=== PATIENT | male | born 1940 | race Caucasian/White ===

== ENCOUNTER → 2018-06-11 11:03 | Outpatient (CLI) | payer MEDICARE, SELFPAY ==
--- NOTE | 2018-06-11 | DI.RAD.S_ITS ---
PROCEDURE: XR HIP W PEL IF DONE LT 2V INDICATIONS: LEFT HIP PAIN TECHNIQUE: AP pelvis with lateral view(s) of the left hip(s). COMPARISON: None. FINDINGS: Bones: No fractures or dislocations. Pelvic ring appears intact. No suspicious bony lesions. Soft tissues: The visualized bowel gas pattern is normal. No suspicious soft tissue calcifications. IMPRESSION: No acute radiographic findings. If pain persists, consider advanced imaging with CT or MRI. Dictated by: Fatmata Marcelino M.D. on 06/11/2018 at 12:12 Approved by: Fatmata Marcelino M.D. on 06/11/2018 at 12:12
== END ==
PROVIDERS: PCP Physician Assistant; Visit Provider Student in an Organized Health Care Education/Training Program
DX: M25.552 Pain in left hip (principal)
CPT/HCPCS: 73502

== ENCOUNTER → 2018-06-23 08:03 | Outpatient (CLI) | payer MEDICARE, SELFPAY ==
--- NOTE | 2018-06-23 | DI.ECHO.S_ITS ---
[facility] +---------+ : : [address] [place] : : : : [id number] : : : : Phone: [phone]+ Echocardiogram Report + + :Name: LAURO LOONEY Study Date: 06/23/2018 Height: 71 in : :[facility] Weight: 230 lb : : Gender: Male BSA: 2.2 m2 : :: 1940 Age: 77 yrs BP: 140/74 mmHg: :Reason For Study: Abnormal EKG : : Performed By: Gisell Graham : :Referring: DAMION CAMARGO : + + Interpretation Summary 1) Normal left ventricular thickness, size, wall motion, and systolic function (EF 60-65%). 2) Normal right ventricular size and function. 3) No significant valvular abnormalities. 4) 0.9cm cystic structure next to right atrium, best seen on apical four chamber windows. This could be pericardial cyst. Consider CT scan for further characterization. 5) No prior Echo available for comparison. Procedure: Patient supine due to polymyalgia rheumatica of the shoulders. A two-dimensional transthoracic echocardiogram with color flow and Doppler was performed. The study quality was technically adequate. There is no prior echocardiogram noted for this patient. The heart rate ranged between 57-65 bpm during the study. Left Ventricle: The left ventricle is normal in size, wall thickness, and systolic function without any focal wall motion abnormalities. The ejection fraction is estimated to be 60-65%. Right Ventricle: The right ventricle is at the upper limits of normal in size. The right ventricular systolic function is normal. Atria: The left atrial size is normal. The right atrium is moderately dilated. There is no Doppler evidence for an interatrial shunt. Mitral Valve: The mitral valve leaflets appear mildly thickened, but open well. There is trace mitral regurgitation. Aortic Valve: The aortic valve is trileaflet. The aortic valve is mildly calcified. No aortic regurgitation is present. Tricuspid Valve: The tricuspid valve is normal in structure and function. There is a trace or physiologic amount of tricuspid regurgitation. Pulmonary artery pressures cannot be estimated because of the lack of a measurable TR jet velocity. Pulmonic Valve: The pulmonic valve is not well visualized. Great Vessels: The aortic root is normal size. The aortic arch is at the upper limits of normal in size. The ascending aorta is normal in size. The pulmonary is not well visualized. The IVC is of normal diameter and collapses greater than 50% with a sniff. This suggests a low right atrial pressure of 3 mm Hg. Pericardium/ Pleura There is no pericardial effusion. 0.9cm cystic structure next to right atrium, best seen on apical four chamber windows. This could be pericardial cyst. Consider CT scan for further characterization. There is no pleural effusion. MMode/2D Measurements & Calculations LVIDd: 5.4 cm LVOT diam: 2.4 cm LVIDs: 3.3 cm Ao root diam: 3.2 cm FS: 38.1 % asc Aorta Diam: 3.5 cm IVSd: 1.0 cm Ao Arch Diam (distal): 3.1 cm LVPWd: 0.96 cm LV matos. diameter/BSA (cm/m^2): 2.4 LV sys. diameter/BSA (cm/m^2): 1.5 LA A2 area: 17.9 cm2 RA long axis: 4.9 cm LA A4 area: 20.8 cm2 RA area: 22.9 cm2 LA length (vol): 5.4 cm RA vol: 91.4 ml LA vol: 58.8 ml RA : 40.8 ml/m2 LA vol index: 26.3 ml/m2 IVC diam: 1.8 cm RVD1 (basal): 4.3 cm TAPSE: 2.6 cm Doppler Measurements & Calculations Ao V2 max: 137.2 cm/sec LVOT Max [place]: 118.4 cm/sec Ao V2 mean: 102.0 cm/sec LV V1 max P.6 mmHg Ao max P.5 mmHg LV V1 VTI: 27.1 cm Ao mean P.5 mmHg MEHDI(I,D): 3.7 cm2 Ao V2 VTI: 32.8 cm MEHDI(V,D): 3.9 cm2 sev ratio: 0.83 MEHDI indexed to BSA (cm^2/m^2): 1.7 MV E max [place]: 77.8 cm/sec SV(LVOT): 122.1 ml MV A max [place]: 77.8 cm/sec MV E/A: 1.0 Med Peak E' [place]: 8.1 cm/sec E/E' med: 9.6 Lat Peak E' [place]: 10.0 cm/sec E/E' lat: 7.8 E/e' average: 8.7 MV dec time: 0.29 sec Reading Physician:01:02 PM
== END ==
PROVIDERS: PCP Physician Assistant; Visit Provider Student in an Organized Health Care Education/Training Program
DX: R94.31 Abnormal electrocardiogram [ECG] [EKG] (principal); R55 Syncope and collapse
CPT/HCPCS: 93306

== ENCOUNTER → 2018-06-27 08:06 | Outpatient (CLI) | payer MEDICARE, SELFPAY ==
[2018-06-27 10:48] LABS: BUN Creatinine Ratio 37.1 (6-22); Blood Urea Nitrogen 26 mg/dL (9-20); Estimated Glomerular Filt Rate > 60.0 mL/min (>60)
== END ==
PROVIDERS: PCP Physician Assistant; Visit Provider Student in an Organized Health Care Education/Training Program
DX: I10 Essential (primary) hypertension (principal); R06.09 Other forms of dyspnea
CPT/HCPCS: 36415; 82565; 84520

== ENCOUNTER → 2018-06-29 15:06 | Outpatient (CLI) | payer MEDICARE, SELFPAY ==
--- NOTE | 2018-06-29 | DI.CT.S_ITS ---
PROCEDURE: CT CHEST W CON INDICATIONS: Other specified diseases of pericardium TECHNIQUE: After the administration of intravenous contrast, 5 mm thick sections acquired from the pulmonary apices to the posterior costophrenic angles. 7 mm thick coronal and sagittal MIP reformats were acquired. For radiation dose reduction, the following was used: automated exposure control, adjustment of mA and/or kV according to patient size. COMPARISON: None. FINDINGS: Image quality: Excellent. Lungs and pleura: No acute air space opacities. There is a 6 mm nodular density in the dependent left lower lobe just above the left hemidiaphragm. There is mild emphysema. There is lingula scar/atelectasis. No pleural effusions or pneumothorax. Central and peripheral airways are patent and normal in caliber. Mediastinum: Heart size is normal. No pericardial effusion. There is a small pericardial cyst in the right cardiophrenic angle. No mediastinal or hilar adenopathy by size criteria. Thoracic aorta and central pulmonary arteries are normal in size. Esophagus is normal in caliber. No hiatal hernia. Bones and chest wall: No suspicious bony lesions. No vertebral body compression fractures. No axillary or supraclavicular adenopathy by size criteria. Thyroid gland is normal. Abdomen: Visualized upper abdominal solid organs appear normal. Upper abdominal bowel loops are normal in caliber. IMPRESSION: 1. A small pericardial cyst in the right costophrenic angle. 2. A 6 mm nodular density in the dependent left lung base, most likely round atelectasis. 3. Mild emphysema. Dictated by: Lizzy Serna M.D. on 06/29/2018 at 16:08 Approved by: Lizzy Serna M.D. on 06/29/2018 at 17:28
== END ==
PROVIDERS: PCP Physician Assistant; Visit Provider Student in an Organized Health Care Education/Training Program
DX: I31.8 Other specified diseases of pericardium (principal); R91.1 Solitary pulmonary nodule; J43.9 Emphysema, unspecified
CPT/HCPCS: 71260; Q9967

== ENCOUNTER → 2018-07-13 17:06 | Outpatient (CLI) | payer MEDICARE, SELFPAY ==
--- NOTE | 2018-07-13 | DI.MRI.S_ITS ---
PROCEDURE: MR HIP LT WO CON INDICATIONS: PAIN IN LEFT HIP POST FALL TECHNIQUE: Noncontrast coronal T1 spin echo and STIR through the bony pelvis. Coronal and axial T2 fast spin echo with fat saturation, sagittal T1 spin echo, and oblique axial T2 fast spin echo with fat saturation through the hip. COMPARISON: [facility], MR, MR PELVIS WO CON, 07/13/2018, 17:20. FINDINGS: Image quality: Excellent. Bones and joints: Bone marrow of the pelvic ring and proximal femurs demonstrate normal overall signal. There are healing subacute fractures of the left superior and inferior pubic rami with associated pulmonary edema. Fracture lines remain visible with bridging callus noted. The proximal left femur appears intact. The visualized lower lumbar spine demonstrates [id number] degenerative disc disease and mild facet arthropathy. Tendons and ligaments: The gluteus medius and minimus tendons demonstrate minimal partial tearing distally with mild tenderness edema. The adjacent proximal iliotibial band appears intact. The iliopsoas tendon appears intact, without adjacent bursal fluid collections or evidence for impingement syndrome. The origin of the hamstring tendon is intact at the ischial tuberosity, as well as the associated sacrotuberous ligament. The straight and reflected heads of the rectus femoris muscle origin appear intact, as well as the conjoint tendon. The ligamentum teres appears mildly attenuated with periligamentous edema suggestive of a mild sprain. Labrum and cartilage: The acetabular labrum demonstrates degenerative signal with a small tear in the anterior labrum. Cartilage surface of the femoral head demonstrates mild thinning. There is minimal collar osteophytosis at the femoral head-neck junction. The alpha angle of the femur appears within normal limits at less than 55 degrees. Soft tissues: There is mild edema within the musculature of the adductor compartment adjacent to the pubic rami fractures consistent with reactive changes or mild muscle strain. Quadratus femoris muscle demonstrates no internal edema to suggest ischiofemoral impingement. The proximal sciatic neurovascular bundle appears normal adjacent to the hamstring tendons. No free pelvic fluid. Bladder wall thickness is normal. There is segmental wall thickening in the sigmoid colon demonstrated.. IMPRESSION: 1. Healing subacute fractures of the left superior and inferior pubic rami. 2. Mild edema within the musculature of the adductor compartment likely representing reactive changes or mild strains. 3. Segmental wall thickening in the sigmoid colon noted. Although the findings may represent a mild colitis, an intramural mass cannot be excluded. Recommend a followup CT with contrast or correlation with colonoscopy. 4. Small tear of anterior labrum. 5. Suspected mild sprain of the ligamentum teres. Dictated by: Sal Christensen M.D. on 07/14/2018 at 10:07 Approved by: Sal Christensen M.D. on 07/14/2018 at 10:20
--- NOTE | 2018-07-13 | DI.MRI.S_ITS ---
PROCEDURE: MR PELVIS WO CON INDICATIONS: PAIN IN LEFT HIP POST FALL TECHNIQUE: Noncontrast coronal and axial T1 spin echo and STIR through the bony pelvis. COMPARISON: [facility], CR, XR HIP W PEL IF DONE LT 2V, 06/11/2018, 11:15. [facility], MR, MR HIP LT WO CON, 07/13/2018, 17:47. FINDINGS: Image quality: Excellent. Bones: Bone marrow of the pelvic ring, sacrum, and proximal femurs demonstrate normal overall signal. There is a subacute healing fracture within the pelvis at the junction of the medial left acetabulum and superior pubic ramus with bridging callus demonstrated. Fracture line remains visible. There is associated bone marrow edema. There is also a healing fracture of the inferior pubic ramus with associated bone marrow edema. The proximal femurs appear intact. The visualized lower lumbar spine demonstrates [id number] degenerative disc disease and mild facet arthropathy. Tendons: The gluteus medius and minimus tendons appear intact, without associated muscle atrophy. There is mild peritendinous edema distally at the greater trochanters. The proximal iliotibial bands also appear intact. The iliopsoas tendon appears intact bilaterally, without adjacent bursal fluid collections or evidence for impingement syndrome. The origin of the hamstring tendon is also intact bilaterally at the ischial tuberosity, as well as the associated sacrotuberous ligament. The straight and reflected heads of the rectus femoris muscle origin appear intact, as well as the conjoint tendon. Soft tissues: There is mild edema within the left adductor compartment likely representing reactive edema or muscle strains. No joint effusions. No free pelvic fluid. Bladder wall thickness is normal. Genitourinary structures and bowel loops appear normal where visualized. IMPRESSION: 1. Healing subacute fractures of the left superior and inferior pubic rami. 2. Mild edema within the adjacent muscles of the adductor compartment consistent with reactive changes or mild muscle strains. Dictated by: Sal Christensen M.D. on 07/14/2018 at 9:49 Approved by: Sal Christensen M.D. on 07/14/2018 at 10:06
== END ==
PROVIDERS: PCP Physician Assistant; Visit Provider Student in an Organized Health Care Education/Training Program
DX: M25.552 Pain in left hip (principal); M51.36 Other intervertebral disc degeneration, lumbar region; M47.816 Spondylosis without myelopathy or radiculopathy, lumbar region; S32.592D Other specified fracture of left pubis, subsequent encounter for fracture with routine healing; W19.XXXD Unspecified fall, subsequent encounter
CPT/HCPCS: 72195; 73721

== ENCOUNTER → 2018-09-23 11:02 | Outpatient (CLI) | payer MEDICARE, SELFPAY ==
[2018-09-23 11:36] LABS: BUN Creatinine Ratio 23.8 (6-22); Blood Urea Nitrogen 19 mg/dL (9-20); Estimated Glomerular Filt Rate > 60.0 mL/min (>60)
--- NOTE | 2018-09-23 12:04 | DI.CT.S_ITS ---
PROCEDURE: CT ABDOMEN PELVIS W CON INDICATIONS: Other specified diseases of intestine. Abnormal MRI TECHNIQUE: After the administration of oral and intravenous contrast, 5 mm thick sections acquired from the diaphragms to the symphysis. 5 mm thick coronal and sagittal reformats were performed. For radiation dose reduction, the following was used: automated exposure control, adjustment of mA and/or kV according to patient size. COMPARISON: [facility], MR, MR HIP LT WO CON, 07/13/2018, 17:47. [facility], MR, MR PELVIS WO CON, 07/13/2018, 17:20. FINDINGS: Image quality: Excellent. ABDOMEN: Lung bases: Lung bases are clear except for mild linear scarring at the posterior medial left lower lobe in the costophrenic sulcus.. Heart size is normal. Solid organs: Liver is normal in size and enhancement. Gallbladder appears normal. Biliary system is non-dilated. Pancreas enhances normally. Spleen is normal in size and enhancement. No adrenal nodules. Kidneys are normal in size and enhancement, without hydronephrosis. Peritoneum and bowel: Stomach, small bowel, and colon loops are normal in caliber and wall thickness. No free fluid or air. Nodes and vessels: No retroperitoneal or mesenteric adenopathy. Aorta and inferior vena cava are normal in caliber. Miscellaneous: No ventral hernias. PELVIS: Genitourinary: Bladder wall thickness is normal. Miscellaneous: No inguinal hernias or adenopathy. There is sigmoid diverticulosis without acute diverticulitis. No adenopathy is seen, no colonic mass lesion is found. Bones: No suspicious bony lesions. No vertebral body compression fractures. IMPRESSION: The prior MR scanning of the left hip after trauma head raise concern for presence of segmental thickening of the sigmoid colon wall in the pelvis, but the current CT scanning identifies only sigmoid diverticulosis without acute diverticulitis and no adenopathy or focal colonic mass lesion is found. Endoscopy provides more accurate assessment of the mucosal surfaces of the colon and may be warranted depending on the clinical status despite absence of visualized abnormality by this examination. Dictated by: Teofilo Evans M.D. on 09/23/2018 at 14:28 Approved by: Teofilo Evans M.D. on 09/23/2018 at 14:33
== END ==
PROVIDERS: PCP Student in an Organized Health Care Education/Training Program; Visit Provider Student in an Organized Health Care Education/Training Program
DX: K63.89 Other specified diseases of intestine (principal); K57.30 Diverticulosis of large intestine without perforation or abscess without bleeding; R93.3 Abnormal findings on diagnostic imaging of other parts of digestive tract
CPT/HCPCS: 36415; 74177; 82565; 84520; Q9967

== ENCOUNTER → 2021-03-21 09:41 | Outpatient (CLI) | payer MEDICARE, SELFPAY ==
[2021-03-21 10:54] LABS: Add Manual Diff / Slide Review NO; Basophils Absolute Auto 0 /uL (0-100); Basophils Percent Auto 0.5 % (0-2); Eosinophils Absolute Auto 0 /uL (0-450); Eosinophils Percent Auto 0.7 % (2-4); Hematocrit 41.1 % (41-53); Lymphocytes Absolute Auto 1500 /uL (1100-4500); Lymphocytes Percent Auto 27.5 % (25-40); Mean Corpuscular HGB Conc 34.2 % (30-36); Mean Corpuscular Hemoglobin 32.2 PG (26-34); Mean Corpuscular Volume 94.1 fL (80-100); Monocytes Absolute Auto 600 /uL (0-900); Monocytes Percent Auto 11.4 % (3-14); Neutrophils Absolute Auto 3300 /uL (1500-7000); Neutrophils Percent Auto 59.9 % (50-75); Platelet Count 316 X10^3/uL (150-400); Red Blood Cell Count 4.37 X10^6/uL (4.5-5.9); Red Cell Distribution Width 13.1 % (11.6-14.8); White Blood Cell Count 5.5 X10^3/uL (4.5-11.0)
[2021-03-21 11:02] LABS: Hemoglobin A1C% w Est Avg Glu 4.9 % (4.0-6.0)
[2021-03-21 11:08] LABS: BUN Creatinine Ratio 22.4 (6-22); Blood Urea Nitrogen 19 mg/dL (9-20); Calcium 9.1 mg/dL (8.4-10.2); Carbon Dioxide 30 mmol/L (22-32); Chloride 100 mmol/L (98-107); Estimated Glomerular Filt Rate > 60.0 mL/min (>60); Glucose 99 mg/dL (80-110); HEMOLYSIS < 15 (0-50); Potassium 3.8 mmol/L (3.4-5.1); Sodium 136 mmol/L (137-145)
== END ==
PROVIDERS: PCP Student in an Organized Health Care Education/Training Program; Referring Provider Orthopaedic Surgery; Visit Provider Orthopaedic Surgery
DX: Z01.818 Encounter for other preprocedural examination (principal); R73.9 Hyperglycemia, unspecified; Z01.812 Encounter for preprocedural laboratory examination
CPT/HCPCS: 36415; 80048; 83036; 85025; 93005; 93010

== ENCOUNTER → 2021-04-06 10:00 | Outpatient (CLI) | payer OTHER, SELFPAY ==
[2021-04-06 10:38] LABS: COVID19 -Nasal RAPID Negative (Negative)
== END ==
PROVIDERS: PCP Student in an Organized Health Care Education/Training Program; Visit Provider Physician Assistant
DX: Z01.812 Encounter for preprocedural laboratory examination (principal); Z20.822 Contact with and (suspected) exposure to COVID-19
CPT/HCPCS: 87635

== ENCOUNTER 2021-04-07 08:34 | Day surgery (SDC) | payer OTHER, SELFPAY ==
[2021-04-01 07:15] VITALS: BMI 31.1
[2021-04-07] VITALS (13 sets, daily range): BP systolic 94–151; BP diastolic 46–75; PULSE 52–74; RESP 15–16; TEMP 36.3–37.3; O2SAT 94–100; BMI 31.1
--- NOTE | 2021-04-07 06:55 | DI.RAD.S_ITS ---
PROCEDURE: XR KNEE LT 1TO2V INDICATIONS: post op total knee TECHNIQUE: 2 view(s) of the knee acquired. COMPARISON: [facility], CR, KNEE 3V LEFT, 07/01/2016, 13:55. [facility], CR, XR KNEE 4+ VIEWS LEFT, 07/29/2020, 15:53. FINDINGS: Bones: Patient is status post knee joint arthroplasty. Hardware components are in expected positions. Visualized bony structures are intact. Soft tissues: Overlying postoperative changes are noted. IMPRESSION: Normal postoperative examination. Dictated by: Nicolás Jones M.D. on 04/07/2021 at 15:03 Approved by: Nicolás Jones M.D. on 04/07/2021 at 15:04
--- NOTE | 2021-04-07 09:11 | PM.PREOP ---
Pre-operative Note COVID-19 COVID-19 status: Negative Result date/Date tested (Pos, Neg/Pending): 04/06/21 Interval Note History & Physical reviewed/Exam performed by Physician: Yes Changes to H&P: No
[2021-04-07] MEDS: PREGABALIN 75 MG CAPSULE PO (12:23)
[2021-04-07] MEDS: CELECOXIB 200 MG CAPSULE PO (12:23)
[2021-04-07] MEDS: ACETAMINOPHEN 325 MG TABLET 975 MG PO (12:24)
[2021-04-07] MEDS: LACTATED RINGERS 1,000 ML 42 ML IV ×3 (12:25→15:06)
[2021-04-07] MEDS: CEFAZOLIN 2 GM/20 ML SYRINGE IV (14:05)
[2021-04-07] MEDS: TRANEXAMIC ACID 1,000 MG VIAL 1000 MG INJ ×2 (14:10→15:17)
[2021-04-07] MEDS: BUPIVACAINE 0.25% (PF) 60 ML, EPINEPHrine 0.3 MG INJ (14:33)
[2021-04-07] MEDS: BUPIVACAINE LIPOSOME 266 MG/20 ML VIAL INJ (14:34)
[2021-04-07] MEDS: MORPHINE 4 MG/ML INJ INJ (14:34)
--- NOTE | 2021-04-07 14:47 | SUR.OPER ---
HUMIDITY 19 % ..DIRECTOR BILL AWARE ANESTHESIA AND SURGEON. UNANIMOUS AGREEMENT OT PROCEED WITH CASE
--- NOTE | 2021-04-07 15:38 | P.OP_ITS ---
Operative Date/Time/Diagnoses Date of procedure: 04/07/21 Time of procedure: 15:38 Pre-op diagnosis: Left knee osteoarthritis Post-op diagnosis: same Procedure & Clinicians Procedure: Left total knee replacement Same procedure as scheduled: Yes Indications: The patient has had progressively worsening left knee pain with radiographic changes consistent with arthritis. Non-operative management has failed and the patient has requested total knee replacement. The risks, benefits and alternatives to surgery were discussed with the patient prior to proceeding. Risks discussed included, but were not limited to, failure to relieve pain, stiffness, infection, nerve damage, deep venous thrombosis, pulmonary embolism, stroke, coma, heart attack, permanent paralysis and , as well as the potential need for eventual revision of the prosthetic. Surgeon: Issa Vera Supervisor Pipeline Maintenance: Silvana Gallo Click Yes if Unassisted: No Anesthesia Type: General, Spinal and Local Operative Notes Findings: Severe patellofemoral and moderately severe medial and lateral compartment osteoarthritis. Closure Type: primary Specimen(s): none sent Prosthetic devices, grafts, tissues, transplants, or devices: Implants used in this procedure were manufactured by the [employer] and [employer] and included the BCS II Journey total knee replacement with a size 9 left Oxinium femoral component, size 8 left non porous tibial base plate, a 9 mm cross-linked tibial insert and a 38 mm oval Echo II patella. Applied: implant(s) Estimated Blood Loss (mL): 25 Blood products transfused: none Tourniquet time (min): 54 Procedure in detail: The patient was seen in the pre-operative area, where the left knee was identified as the operative site and this was marked with my initials. The patient received pre-operative antibiotics, and was taken to the operating room and placed on the operative table in the supine position. After satisfactory anesthesia, a multimedia technician out was performed. The left leg was encircled with a tourniquet about the proximal thigh, and the leg was prepared from the toes to the tourniquet with ChloroPrep in the usual fashion and draped through sterile drapes. The leg was elevated and exsanguinated with Eschmark bandage and the tourniquet inflated to 250 mmHg pressure. The knee was approached through an approximately 18 cm incision centered over the patella and carried into the knee through a medial parapatellar arthrotomy. The anterior osteophytes and soft tissues were removed. The rotational landmarks of [place]'s line and the transepicondylar axis were marked on the femur with electrocautery, and intramedullary guide holes for the femur and tibia were created. The distal femoral cut was made in 6 degrees of valgus using the intramedullary guide at the primary cut setting. The femur was sized and found to be a size 9 soon additional 2 mm cut was taken on the femur. The proximal tibial cut was then made using the intramedullary guide, taking 9 mm of bone off the less involved side. The extension gap was checked and the rotation of the femoral component confirmed with the gap balancing blocks. The anterior, posterior and chamfer cuts were then made. The posterior osteophytes and soft tissues were then removed. The posterior capsule was injected with part of a mixture of 60 ml 0.25% Marcaine mixed with 20 ml Exparel and 4 mg of morphine for post-operative pain control. The remainder of this mixture was injected into the capsule and subcutaneous tissues during cement curing. The tibia was prepared with the rotation set by an extra medullary guide. Trial tibial and femoral components were then placed and the intercondylar notch cut through the femoral trial. Range of motion was 0-135 degrees, with good stability throughout the range. The patella was then cut to accommodate the patellar prosthetic. There was no need for a lateral release. The trials were then removed, and the femoral hole plugged with a bone plug. The bone was prepared with pulsatile lavage, and dried with a sponge. Cement was applied and the final prosthetics placed. Excess cement was removed during and after cement curing. After confirming there was no extruded cement posteriorly, the final tibial insert was placed. The knee was copiously irrigated and the tourniquet deflated. Hemostasis was obtained. The capsule was closed with interrupted # 2 polyester sutures. The subcutaneous layer was closed with 3-0 Vicryl, and the skin with a running 3-0 V-Lock suture and Dermabond. An Aquacel Ag dressing was applied and the patient was taken to recovery having tolerated the procedure well. Complications: none Post-operative Condition: stable Disposition: PACU Plan for aftercare: The patient will be maintained on a standard total knee replacement protocol with weight bearing as tolerated. The patient will receive aspirin and sequential compression devices for DVT prophylaxis. The patient will be discharged home when safe for the home environment.
[2021-04-07] MEDS: LACTATED RINGERS 1,000 ML 100 ML IV (17:30)
[2021-04-07] MEDS: ONDANSETRON 4 MG/2 ML INJ IV (19:07)
--- NOTE | 2021-04-07 19:11 | PC.NURSE ---
Pt arrived from PACU at 1627 A&Ox3, VSS, afebrile on RA, noted slighly bradycardic intermittently. Tolerating advanced diet. Then orderd dinner and tolerated well w/o n/v. Reports increased sensation to B LE's, initially had sensation but dull feeling however buttock region numb from spinal. he has not yet voided. LR at 100ml/hr. FABIENNE wrap to L knee C/D/I. At 1840 Pt felt overwhelmingnausea. Assessed BP 78/42 HR 40's. positioned pt in reverse trendelendberg with slight improvement, administered zofran. MD Ruth braden notified and received orders to administer 1 Liter bolus LR and hold antihypertensives. Also monitor for urinary retention as spinal block wearing off. Endorsed to oncoming shift. BP 98/54 HR 55
[2021-04-07] MEDS: DOCUSATE 100 MG CAPSULE PO (21:23)
[2021-04-07] MEDS: ASPIRIN EC 81 MG TABLET PO (21:23)
[2021-04-07] MEDS: ACETAMINOPHEN 325 MG TABLET 650 MG PO (21:23)
[2021-04-07] MEDS: LACTATED RINGERS 1,000 ML 1000 ML IV (21:26)
[2021-04-08 00:49] VITALS: BP 125/71; PULSE 65; RESP 17; TEMP 36.1; O2SAT 93
--- NOTE | 2021-04-08 01:41 | PC.NURSE ---
patient alert, oriented. voices needs. denies pain/discomfort. reports returning sensations to LLE/foot. + CSM. LR via PIV at 100/hour after bolus completed at HS. Left knee wrapped w/ harsha. SCD's in place. bp improved from earlier 115/62, pulse 67. tolerating RA of 99%. 2400: patient OOB w/ 1pa, encouraged to use FWW but he declined it and preferred hand hold/contact guard assist. Attempted urination while sitting on the toilet, then by standing above it. able to urinate small amounts. PVR scan 218. patient explained he had some difficulty at home w/ urination; has recent prostate CA dx. patient states he occassionally has difficulty urinating at night time; especially since dx of prostate CA. per patient report: treatment will more than likely be radiation treatment. patient declined to turn IVF back on. i am drinking plenty of fluids. will notify MD in AM. 0230: b/p 125.71 pulse 65. remains comfortable, denies c/o.
[2021-04-08 02:31] VITALS: BP 125/71; PULSE 65; RESP 16; O2SAT 99
[2021-04-08 04:01] VITALS: BP 115/66; PULSE 61; RESP 18; TEMP 36.4; O2SAT 94
[2021-04-08 06:30] LABS: Hemoglobin 12.9 g/dL (13.5-17.5)
--- NOTE | 2021-04-08 07:18 | PM.DS.1 ---
History of Present Illness History of Present Illness Date Patient Seen: 04/08/21 Time Patient Seen: 07:18 Chief complaint: LEFT TKA *OPB* Narrative: The history and physical are contained in the chart previously completed note. Please refer that note for this information. Discharge Providers Provider Date of admission: April 07, 2021 Discharge Date: 04/08/21 Primary care physician: Maryann Dupree PA-C Consults: 04/07/21 17:07 Consult to Discharge Planning Routine Comment: Consult to Physical Therapy Evaluate & Treat Comment: Physician Instructions: postop TKA protocol Discharge provider: Issa Vera MD Summary Hospital Course Discharge Diagnosis: 1. Left knee osteoarthritis 2. Post hemorrhagic anemia Hospital Course: Patient was admitted to the hospital and taken directly to the operating room on April 07, 2021. He underwent a left total knee replacement without complications. He was stable overnight but did require a bolus of IV fluids. In the morning he had a mild post hemorrhagic anemia as anticipated, it is predicted at the time of this dictation that he will be ready for discharge later in the day. Status at Discharge Cognitive/behavioral status at discharge: at baseline, oriented Functional status at discharge: uses cane/walker Overall status at discharge: patient is progressing back to baseline Time Spent with Patient Time spent: Less than 30 minutes Exam Vital Signs (past 8 hours): - 04/08/21 00:49 04/08/21 02:31 04/08/21 04:01 Temperature 97 F L 97.5 F L Pulse Rate 65 65 61 Respiratory Rate 17 16 18 Blood Pressure 125/71 125/71 115/66 Pulse Oximetry 93 99 94 Oxygen Delivery Method Room Air Oxygen Flow Rate 0 Narrative Exam Narrative: Left knee wound is dressed with no drainage on the bandage. Calf is soft. Light touch and motion are intact in the left lower extremity. Objective Labs Result Diagrams: 04/08/21 06:20 Labs: Laboratory Results - last 24 hr 04/08/21 06:20 Hgb 12.9 L Hct 38.0 L PFSH Medical History (Updated 04/01/21 @ 09:05 by Dejah Myers RN) Asthma Cataracts, bilateral HTN (hypertension) Osteoarthritis Prostate cancer (~02/2021) Skin cancer Surgical History (Updated 04/01/21 @ 09:05 by Dejah Myers RN) History of vasectomy Hx of tonsillectomy Social History household members: spouse Smoking Status: Former smoker alcohol intake: current Discharge Assessment & Plan Assessment and Plan Assessment: Stable postoperative day 1 status post left total knee replacement with the exception of a mild post hemorrhagic anemia which should not require specific treatment. He has been to the bathroom several times without assistance. It is predicted he will be able to pass physical therapy criteria for discharge later this morning. Plan of Treatment: Discharge today with follow-up in my office in 10-14 days. Prescription for oxycodone has been called into the pharmacy, and he has been given instructions for the use of Tylenol and ibuprofen for pain control and aspirin for DVT prophylaxis. Discharge Plan Discharge Plan Patient Disposition: Home Discharge orders & Medications Discharge Orders: Discharge (Order); Ordered 04/08/21 Ordered By: Issa Vera Prescriptions: New acetaminophen 325 mg Tablet 650 mg PO TID 30 Days Qty: 180 0RF aspirin 81 mg Tablet,Delayed Release (Dr/Ec) 81 mg PO BID 42 Days Qty: 84 0RF ibuprofen 400 mg Tablet 400 mg PO Q8HR PRN (Reason: Pain, Mild (1-3)) 30 Days 0RF oxycodone 5 mg Tablet 5 mg PO Q3HR PRN (Reason: Pain, Moderate (4-6)) Qty: 40 0RF Continued amlodipine 10 mg Tablet 10 mg PO BEDTIME 0RF hydrochlorothiazide 25 mg Tablet 25 mg PO BEDTIME 0RF Follow up/Referrals: Maryann Dupree PA-C [Primary Care Provider] - Issa Vera MD [Physician] - 2 Weeks Diet/Activity/Treatments Diet: Diet as Tolerated and Regular Activity: You may bear weight as tolerated on your left knee. Cold/Heat Therapy: You may apply ice for 15 minutes every hour as needed to the left knee for pain control. Skin/Wound/Dressing Care Report to your healthcare provider any signs of infection, such as:: chills, fever, night sweats, increased pain, unusual drainage and unusual redness Dressing: You may remove the Dakota wrap 3 days after surgery and shower normally with the deeper dressing in place. Leave the deeper dressing in place until your postoperative follow-up. If the central strip of the dressing becomes saturated with either water or blood, please call the office to have it changed. Visit Report/Discharge Packet Instructions: DI for Knee Replacement Stand Alone Forms: Surgery Discharge Discharge Data Primary Care Provider: Maryann Dupree Attending Provider: Issa Vera
[2021-04-08 07:30] VITALS: BP 136/71; PULSE 68; RESP 18; TEMP 37.1; O2SAT 98
[2021-04-08] MEDS: DOCUSATE 100 MG CAPSULE PO (08:42)
[2021-04-08] MEDS: ASPIRIN EC 81 MG TABLET PO (08:42)
[2021-04-08] MEDS: ACETAMINOPHEN 325 MG TABLET 650 MG PO (08:43)
--- NOTE | 2021-04-08 09:18 | CM.DANOTE ---
DCP: Case received, EMR reviewed and met with patient. Introduced self and role. Was able to obtain information regarding patient's baseline activity status prior to his surgery. DCP assessment completed with information currently available. Patient is a 80 year old male who admitted yesterday morning to the care of the orthopedic team. PCPL Dr. Dupree. Payer: confirmed: [facility]. Patient came to the hospital via private vehicle for a surgical procedure. Patient had left total knee arthroplasty. Patient has history of osteoarthritis. Met with patient in his room. He was sitting up in his chair, alert and oriented. Patient resides in [place] with his spouse, Yaz. He and his have resided there for approximately 45 years. Patient is independent at his baseline. He indicated, he is active, usually walks between 2-3 miles a day, and also uses stationary bike. He uses treking polls for long walks. He indicated, his knees have been bothering him for a while, and has been going to [facility], and plans to do so after discharge. P: Patient has discharge orders for home today. He will work with P.T. prior to discharge. 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 Yes Advance Directives on File No History Provided By Patient,Medical Record Prior Living Arrangements House Household Members spouse Type of transporation used prior to Drives own vehicle admit Independent with ADL's Yes Is patient alert and oriented? Yes Caregiver for Another No Patient/Family Preference OP PT Therapy Comment Patient has been going to [facility], and plans to do so after discharge. Barriers to Discharge No Referrals Initiated None needed Whiteboard Updated in Patient Room with Yes name and ext. # of Boat Fueler Review Status In Process Next Review Type Continued Stay Review Pre-Anesthesia Assessment Start: 04/01/21 07:15 Freq: Status: Active Protocol: Document 04/01/21 07:15 [facility] (Rec: 04/01/21 09:20 [facility] [id number]) Pre-Anesthesia Assessment Preferred Name Dar Patient Information Reviewed Via Phone Assessment Assessment Completed With Patient H&P Completed Within 30 Days Yes Diagnostic Results BMP/CMP,CBC,EKG Comment Labs/EKG @ [facility] 03/21/21, COVID screen 03/07/21 @ [facility] per pt Primary Care Provider Maryann Dupree Seen Specialist in Last 12 Months Yes Specialist Seen Oncologist,Orthopedist, Urologist Primary Language Portuguese Litigation Attorney Associate Required No Height 5 ft 11 in Weight 223 lb Body Mass Index (BMI) 31.1 Hearing Ability Normal Visual Assist Magnifying Glass Dentition Type Teeth, Natural Present,Teeth, Missing Barriers to Learning None Hx Anesthesia Reactions No Hx Family Anesthesia Reaction No Hx Malignant Hyperthermia No Hx Blood Transfusions No Anesthesia Review Requested No alcohol intake current alcohol intake frequency 0-2 drinks per day Smoking Status Former smoker Tobacco type cigarettes how long ago did patient quit smoking Quit 1977 Substance Use Type does not use Pain Present Pain Reported Musculoskeletal Symptoms Back Pain,Difficulty Walking, Joint Pain History of Falling (Recent or History of No ) Patient is completely paralyzed or No completely immobile Mental Status Oriented to own ability Is patient on oxygen? No Does patient have JHA/SOB No Hx Sleep Apnea No Currently Taking a Beta Nika No Hx Chest Pain No Hx SOB No Hx Syncope or Dizziness Yes: Syncopal episode during skiing r/t dehydration approx 4 years ago Anti-Coagulant Therapy No Has a Mat Man No Cardiac Testing No Hx Pacemaker/ICD No Pacemaker Rep Required? No Cardiac Clearance Received Not Applicable Diet Type At Home Regular dysphagia No Bladder Pattern Frequency,Nocturia Urinary Catheter Present No Hx Urinary Self Catheterization No Diabetes No HgbA1C 4.9 Date 03/21/21 Hx Drug Resistant Organism No Presence of External or Internal Medical No Devices Have you had any close contact with No someone diagnosed with COVID-19? Received a COVID vaccine? Yes Received all doses? Yes Marital Status Lives With spouse Prior Living Arrangements House Number of Floors (Floors) One Floor Support System Spouse Does the Patient Have Assistance After Yes Surgery Patient Discharge Plan Description Return Home Comment Pt advised possible same day to overnight length of stay per surgeon Feels Safe in Current Environment Yes Been Physically Hurt or Threatened By a No Person in Current Environment Do you have thoughts of harming yourself None or others? Are you currently considering suicide? No Do you have a plan to hurt yourself or No Plan others? Do You Have Any Spiritual Beliefs That No May Affect Your HC Choices? Do You Have Any Cultural Practices That No May Affect Your HC Choices? Comment Atheist Who Can We Speak to About Patient's Care Family, friends Identifying Code for Release of Patient Declines to issue Information Health Care Proxy/Next of Kin Yaz () Health Care Proxy Emergency Contact Name Yaz () Emergency Contact Advance Directives? Yes Advance Directives on File No Requested Patient Bring Advanced Yes Directives DOS Power of Chief Pharmacist Yes Power of Chief Pharmacist Name Yaz (yoselin) Power of Chief Pharmacist PAC Instructions Durable medical equipment, Medications to take/avoid, Nasal antibiotic,No ETOH/ petroleum product on skin DOS, NPO,Post-op transportation,Pre -surgical wash,Sensory aids, Sturdy shoes/comfortable clothes,Do not bring valuables and remove jewelry
--- NOTE | 2021-04-08 10:20 | PT.IIE ---
Current Diagnoses Unilateral primary osteoarthritis, left knee (04/07/21) Surgery Performed Operation Date: 04/07/21 10:45 Actual Procedures p Total Knee Arthroplasty(Left) - Issa Vera MD Medical History (Last Updated 04/01/21 @ 09:05 by Dejah Myers RN) Asthma Cataracts, bilateral HTN (hypertension) Osteoarthritis Prostate cancer (~02/2021) Skin cancer Physical Therapy Inpatient Evaluation/Re-Eval M1 PT/OT-IP Prior Functional Status Start: 04/08/21 08:46 Freq: NEEDED Status: Active Protocol: Document 04/08/21 10:20 AW (Rec: 04/08/21 10:42 AW [id number]) Medical Review Prior Functional Status Medical History Reviewed Yes Communication WNL Mobility and Gait Pt is active and independent at baseline. He uses B trekking poles for longer walks due to knee pain but no other assistive device. Activities of Daily Living and IADL's Independent with all ADL and IADL's. 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 Social History Household Members spouse Living Arrangements House Number of Floors (Floors) One Floor Number of Stairs To Enter/Railing? 9 YEN through garage with narrow B rails. Front entrance has a ramp + 3 stairs but they are icy now and pt will enter through garage. Home Environment Standard Height Toilet,Walk in Shower,Built-In Shower Seat Home Equipment Front Wheel Walker,Hand Held Shower,Grab Bars Near Toilet, Grab Bars In Shower Employment Status Retired Additional Social History Comment Pt has adjustable bed. 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 Spouse will be available and able to assist at discharge. M2 PT-IP Current Condition Start: 04/08/21 08:46 Freq: NEEDED Status: Active Protocol: Document 04/08/21 10:20 AW (Rec: 04/08/21 10:42 AW [id number]) Physical Therapy Current Condition Current Condition Evaluation Date 04/08/21 Treatment Diagnosis s/p L TKA; difficulty in walking Onset Date 04/07/21 M3 PT-IP Subjective Start: 04/08/21 08:46 Freq: NEEDED Status: Active Protocol: Document 04/08/21 10:20 AW (Rec: 04/08/21 10:42 AW [id number]) Subjective Physical Therapy Visit Type Type Initial Evaluation Visit Start Time 09:52 Visit Stop Time 10:16 Total Visit Minutes 24 Number of INFORMATICS CONSULTANT Visits 0 Physical Therapy Visit Comments Patient Comments Pt is willing to participate with PT Patient Goals Pt hopes to be skiing when he is 82 yo and beyond. Therapy Pain Assessment Pain When Pain Assessed During Mobility Pain Present Pain Present Pain Reported Location Left Lower Knee Intensity 4 Pain Management Techniques Apply Cold,Timing of Activity with Medications M4 PT-IP Mobility and Gait Start: 04/08/21 08:46 Freq: NEEDED Status: Active Protocol: Document 04/08/21 10:20 AW (Rec: 04/08/21 10:42 AW [id number]) PT-Bed Mobility Assessment Supine to Sit Supine to Sit Standby Assistance Scooting Scooting to Edge of Bed Standby Assistance PT-Transfer Assessment Sit to and From Stand Sit to and from Stand Standby Assistance,Use of Upper Extremities Equipment Transfer Assistive Device Gait Belt,Front Wheeled Walker Orthotic/Prosthetic Devices or Brace: No Transfers Transfer Destination Chair Transfer Technique amb with FWW Transfer Ability Level of Assist Standby Assistance Comments Mobility Comments Pt was lying in bed as PT arrived. BP 143/77 HR 75. Pt completed supine to sit SBA and stood with FWW SBA. He was able to shift weight laterally without increased discomfort. He ambulated in the halls 85 feet with FWW SBA to the stairs, completed stair training, and walked back in similar fashion. On return to the room, pt transferred to the chair and completed sit to stand x 2 SBA with good safety awareness and eccentric control. Pt was left with RN who arrived to assist with prep for discharge . Gait Assessment Gait Gait Assistance Required: Standby Assistance Distance (Feet) 170 Able to Maintain Weight Bearing Status Yes During Gait Assistive Devices Assistive Device Gait Belt,Front Wheeled Walker Orthotic/Prosthetic Devices or Brace: No Gait Deviations General Gait Pattern Antalgic,Flexed Trunk,Step-to Gait Factors Limiting Gait Function Factors Limiting Gait Function Decreased Strength,Limited Range of Motion,Pain Comments Gait Comments Pt ambulated with flexed trunk and step-to patterning initially. PT adjusted walker height and pt was able to improve posture/hip extension in response to cues. Stair Climbing Assessment Evaluation Level of Assist On Stairs Standby Assistance Devices Stair Climbing Assistive Devices Left Railing,Right Railing Technique/Endurance Stair Climbing Direction Ascend and Descend Stair Climbing Technique Step to Step Number of Steps Climbed 3 Query Text: Stair Climbing Set # Repetitions (reps) 2 Comments Stair Climbing Comments Pt sequenced stairs independently after education and demonstration. PT-Balance Assessment Sitting Balance and Reactions Static Sitting Balance Ability Normal Dynamic Sitting Balance Ability Normal Standing Balance and Reactions Static Standing Balance Ability Good Dynamic Standing Balance Ability Fair Device Used FWW M5 PT-IP Objective Assessments Start: 04/08/21 08:46 Freq: NEEDED Status: Active Protocol: Document 04/08/21 10:20 AW (Rec: 04/08/21 10:42 AW [id number]) Orientation Orientation/Cognition Level of Alertness Alert Orientation Name,Day of Week,Place, Situation Language Function Ability No Deficits Noted Safety Awareness Understands Safety Issues Gross Range of Motion Lower Extremity ROM Assessment Left Impaired Impairments L knee ~4-85 Strength Lower Extremity Strength Assessment Left Impaired Comments Strength Comments RLE grossly 5/5 Sensation Assessment Sensation Gross Sensation WNL M6 PT-IP Treatment Start: 04/08/21 08:46 Freq: NEEDED Status: Active Protocol: Document 04/08/21 10:20 AW (Rec: 04/08/21 10:42 AW [id number]) Physical Therapy Treatment Exercises Exercises Ankle Pumps,Quad Sets,Heel Slides,Passive Knee Extension Hang,Seated Knee Flexion/ Extension Education Education Provided Weight Bearing Status,Post-Op Packet,Safety Other Treatments Other Treatment Performed Educated pt on PT plan of care , WB status, rationale for use of FWW, and importance of ROM focus in early phase of rehab . M7 PT-IP Assessment and Plan Start: 04/08/21 08:46 Freq: NEEDED Status: Active Protocol: Document 04/08/21 10:20 AW (Rec: 04/08/21 10:42 AW [id number]) PT Summary Assessment and Plan Potential Rehabilitation Potential Excellent Status of Condition at Evaluation Evolving Summary Impairments Pain,ROM,Strength,Balance, Transfers,Gait Assessment Summary Dar is an active 80 yo man seen for PT evaluation on POD1 following L TKA. He is independent in all regards at baseline. He required no more than SBA for ambulation with FWW and stair navigation on assessment. Once medically cleared, he will be safe to discharge home with assist and outpatient PT (already scheduled) to progress his ROM , strength, and gait. No further acute PT needs are identified. Frequency of Treatment Frequency Of Treatment Discharge Recommendations To Nursing Amount of Assist Needed Standby Assistance Discharge Recommendations PT Discharge Recommendations Home with Assistance, Outpatient PT Transportation Needs at Discharge Private Vehicle
--- NOTE | 2021-04-08 11:32 | PC.NURSE ---
Addendum entered by Dina Camacho R.N. 04/08/21 11:49: He verbalizes understanding of site care, medications, signs and symptoms of infection, activity as well as his follow up appointment. He is escorted by wheelchair this morning at 1120 with all of his belongings,including his FWW and his discharge paperwork to private vehicle with for discharge home. Original Note: Pt is A&Ox3. VSS, afebrile on RA. He is ambulating to BR with SBA using FWW. He has full sensation below the waist and is voiding without difficulty. He reports pain is manageable at 4/10 he declines oxycodone PRN but requests PRN ibuprofen this a.m. He eats 90% of his meal w/o n/v.He is cleared for discharge home from both ortho and PT/OT.
== END 2021-04-08 11:30 | disposition home or self-care (01) ==
LOC: OR 08:38 → AC 08:38
PROVIDERS: PCP Student in an Organized Health Care Education/Training Program; Referring Provider Orthopaedic Surgery Adult Reconstructive Orthopaedic Surgery; Visit Provider Orthopaedic Surgery
PROC: 0SRD0JZ Replacement of Left Knee Joint with Synthetic Substitute, Open Approach (ICD-10-PCS; CPT 27447; principal; 2021-04-07 10:45)
DX: M17.12 Unilateral primary osteoarthritis, left knee (principal); I10 Essential (primary) hypertension; J45.909 Unspecified asthma, uncomplicated
CPT/HCPCS: 27447; 36415; 73560; 85014; 85018; 94762; 97116; 97161; C1776; C9290; J0171; J0690; J2250; J2270; J2274; J2405; J2704; J3010

== ENCOUNTER → 2021-05-26 10:45 | Outpatient (CLI) | payer OTHER, SELFPAY ==
[2021-04-07 17:23] VITALS: BMI 31.1
[2021-05-26 12:59] LABS: COVID19 -Nasal RAPID Negative (Negative)
== END ==
PROVIDERS: PCP Student in an Organized Health Care Education/Training Program; Visit Provider Family Medicine Sleep Medicine
DX: Z20.822 Contact with and (suspected) exposure to COVID-19 (principal)
CPT/HCPCS: 87635; C9803

== ENCOUNTER 2021-05-27 08:49 | Day surgery (SDC) | payer OTHER, SELFPAY ==
[2021-04-07 17:23] VITALS: BMI 31.1
[2021-05-27] MEDS: PROPARACAINE 0.5% OPHTH SOL 2 DROPS EYE-OP (09:55)
[2021-05-27] MEDS: CATARACT EYE COMPOUND (10 DROPS/SYRINGE) 3 DROPS EYE-OP (09:55)
--- NOTE | 2021-05-27 10:16 | P.OP.PRE_ITS ---
Pre-operative Note Interval Note History & Physical reviewed/Exam performed by Physician: Yes Changes to H&P: No Addendum Addendum Note: There are no non surgical alternatives to the patient's condition. Deteriora tion of the patient's condition is expected. Delay may result in more complex future surgery
--- NOTE | 2021-05-27 10:17 | P.OP_ITS ---
Operative Date/Time/Diagnoses Pre-op diagnosis: Nuclear cataract right eye Procedure & Clinicians Procedure: Cataract Surgery Same procedure as scheduled: Yes Surgeon: Issa Corral Anesthesia Type: MAC +/- and Sedation Operative Notes Procedure in detail: Patient brought to the operating suite. Tetracaine drops placed in the right eye. Marking instrument was used to mendez the vertical and horizontal meridians. Patient was prepped and draped in sterile manner. Wire lid speculum was placed in the eye. Marking instrument was used to mendez the 175 degree meridian. Betadine drops were placed on the eye. This was irrigated. Lidocaine jelly was placed on the eye. A paracentesis port was created with a side-port blade. 0.1 mL 1% preservative free lidocaine was injected into the anterior chamber. The anterior chamber was deepened with viscoelastic. 2.6 mm keratome was used to create a temporal clear corneal incision. Cystotome and Utrata forceps were used to create continuous tear capsulorrhexis. Balanced salt solution was used to hydro dissect the nucleus. The phacoemulsification handpiece was inserted and the nucleus was removed using the stop and chop technique. The irrigation aspiration handpiece was inserted and the remaining cortex was removed. Anterior chamber was deepened with viscoelastic. An Barker [id number] intraocular lens with a power of 18.5 was injected into the capsular bag. Irrigation aspiration handpiece was inserted and the remaining viscoelastic was removed. The lens was rotated to the 175 degree meridian. Incision was hydrated with balanced salt solution and found to be leak free with pressure with Weck-Amy sponges. 0.1 mL Vigamox injected anterior chamber. 0.3 mL Kenalog 10 mg was injected subco njunctivally. Lid speculum was removed. The patient left the operating room in excellent condition. Complications: none Post-operative Condition: stable Disposition: same day surgery
[2021-05-27] MEDS: HYALURONATE SODIUM 30 MG-10 MG/ML SYRINGES 1 BOX INTRAOCULA (10:29)
[2021-05-27] MEDS: MOXIFLOXACIN INJ 4 MG/0.8 ML VIAL 0.5 MG EYE-OP (10:29)
[2021-05-27] MEDS: PHENYLEPHRINE/LIDOCAINE VIAL (OR) 0.2 ML EYE-OP (10:30)
[2021-05-27] MEDS: TRIAMCINOLONE 50 MG/5 ML VIAL INJ (10:30)
[2021-05-27] MEDS: BALANCED SALT IRRIG SOLN NO.2 500 ML, EPINEPHrine 1 MG IRR (10:30)
[2021-05-27] MEDS: TETRACAINE 0.5% OPHTH DROPS 4 ML 2 DROPS EYE-OP (10:31)
[2021-05-27] MEDS: LIDOCAINE 2% (GLYDO) 6 ML GEL TOP (10:31)
[2021-05-27 11:10] VITALS: BP 133/72; PULSE 63; RESP 18; TEMP 36.3; O2SAT 99
== END 2021-05-27 11:10 | disposition home or self-care (01) ==
PROVIDERS: PCP Student in an Organized Health Care Education/Training Program; Referring Provider Ophthalmology; Visit Provider Ophthalmology
PROC: (CPT 66984; principal; 2021-05-27 10:45)
DX: H25.11 Age-related nuclear cataract, right eye (principal); I10 Essential (primary) hypertension; M35.3 Polymyalgia rheumatica; J45.20 Mild intermittent asthma, uncomplicated
CPT/HCPCS: 66984; J0171; J2250; J3010; J3301; V2787

== ENCOUNTER → 2021-06-09 11:21 | Outpatient (CLI) | payer OTHER, SELFPAY ==
[2021-04-07 17:23] VITALS: BMI 31.1
[2021-06-09 13:27] LABS: COVID19 -Nasal RAPID Negative (Negative)
== END ==
PROVIDERS: PCP Student in an Organized Health Care Education/Training Program; Visit Provider Family Medicine Sleep Medicine
DX: Z20.822 Contact with and (suspected) exposure to COVID-19 (principal)
CPT/HCPCS: 87635; C9803

== ENCOUNTER 2021-06-10 07:54 | Day surgery (SDC) | payer OTHER, SELFPAY ==
[2021-04-07 17:23] VITALS: BMI 31.1
[2021-06-10] MEDS: PROPARACAINE 0.5% OPHTH SOL 2 DROPS EYE-OP (09:06)
[2021-06-10] MEDS: CATARACT EYE COMPOUND (10 DROPS/SYRINGE) 3 DROPS EYE-OP (09:08)
[2021-06-10 09:12] VITALS: BP 129/74; PULSE 63; RESP 16; TEMP 36.4; O2SAT 100; BMI 30.7
--- NOTE | 2021-06-10 10:05 | P.OP_ITS ---
Operative Date/Time/Diagnoses Pre-op diagnosis: Nuclear Cataract Left eye Post-op diagnosis: same Procedure & Clinicians Same procedure as scheduled: Yes Surgeon: Issa Corral Anesthesia Type: MAC +/- and Sedation Operative Notes Procedure in detail: Patient brought to the operating suite. Tetracaine drops placed in the left eye. Marking instrument was used to mendez the vertical and horizontal meridians. Patient was prepped and draped in sterile manner. Wire lid speculum was placed in the eye. Marking instrument was used to mendez the 25 degree meridian. Betad ine drops were placed on the eye. This was irrigated. Lidocaine jelly was placed on the eye. A paracentesis port was created with a side-port blade. 0.1 mL 1% preservative free lidocaine was injected into the anterior chamber. The anterior chamber was deepened with viscoelastic. 2.6 mm keratome was used to create a temporal clear corneal incision. Cystotome and Utrata forceps were used to create continuous tear capsulorrhexis. Balanced salt solution was used to hydro dissect the nucleus. The phacoemulsification handpiece was inserted and the nucleus was removed using the stop and chop technique. The irrigation aspiration handpiece was inserted and the remaining cortex was removed. Anterior chamber was deepened with viscoelastic. An Barker [id number] intraocular lens with a power of 19.0 was injected into the capsular bag. Irrigation aspiration handpiece was inserted and the remaining viscoelastic was removed. The lens was rotated to the 25 degree meridian. Incision was hydrated with balanced salt solution and found to be leak free with pressure with Weck-Amy sponges. 0.1 mL Vigamox injected anterior chamber. 0.3 mL Kenalog 10 mg was injected subconjunctivally. Lid speculum was removed. The patient left the operating room in excellent condition. Complications: none Post-operative Condition: stable Disposition: same day surgery
--- NOTE | 2021-06-10 10:05 | PM.PREOP ---
Pre-operative Note Interval Note History & Physical reviewed/Exam performed by Physician: Yes Changes to H&P: No
[2021-06-10] MEDS: HYALURONATE SODIUM 30 MG-10 MG/ML SYRINGES 1 BOX INTRAOCULA (10:18)
[2021-06-10] MEDS: MOXIFLOXACIN INJ 4 MG/0.8 ML VIAL 0.5 MG EYE-OP (10:19)
[2021-06-10] MEDS: PHENYLEPHRINE/LIDOCAINE VIAL (OR) 0.2 ML EYE-OP (10:19)
[2021-06-10] MEDS: TRIAMCINOLONE 50 MG/5 ML VIAL INJ (10:19)
[2021-06-10] MEDS: BALANCED SALT IRRIG SOLN NO.2 500 ML, EPINEPHrine 1 MG IRR (10:20)
[2021-06-10] MEDS: TETRACAINE 0.5% OPHTH DROPS 4 ML 2 DROPS EYE-OP (10:20)
[2021-06-10] MEDS: LIDOCAINE 2% (GLYDO) 6 ML GEL TOP (10:20)
[2021-06-10 10:34] VITALS: BP 128/73; PULSE 59; RESP 16; TEMP 36.8; O2SAT 100
== END 2021-06-10 10:50 | disposition home or self-care (01) ==
PROVIDERS: PCP Student in an Organized Health Care Education/Training Program; Referring Provider Ophthalmology; Visit Provider Ophthalmology
PROC: (CPT 66984; principal; 2021-06-10 09:45)
DX: H25.12 Age-related nuclear cataract, left eye (principal); I10 Essential (primary) hypertension
CPT/HCPCS: 66984; J0171; J2250; J3301; V2787

== ENCOUNTER 2023-08-16 07:24 | Emergency (ER) | payer MEDICARE, SELFPAY ==
[2021-04-07 17:23] VITALS: BMI 31.1
[2023-08-16] VITALS (25 sets, daily range): BP systolic 132–169; BP diastolic 63–81; PULSE 54–73; RESP 18–31; TEMP 36.4–36.5; O2SAT 93–100; BMI 32.5
--- NOTE | 2023-08-16 07:32 | DI.RAD.S_ITS ---
PROCEDURE: XR CHEST 1V INDICATIONS: trauma TECHNIQUE: One view of the chest was acquired. COMPARISON: None. FINDINGS: Surgical changes and devices: None. Lungs and pleura: There is mild pulmonary vascular congestion. No definite focal infiltrate. No pleural effusions or pneumothorax. Mediastinum: Mediastinal contours appear normal. Heart size is enlarged. Bones and chest wall: No suspicious bony lesions. Overlying soft tissues appear unremarkable. IMPRESSION: Cardiomegaly and mild congestion. No definite focal infiltrate. No pleural effusion or pneumothorax. Dictated by: Adrian James M.D. on 08/16/2023 at 8:08 Approved by: Adrian James M.D. on 08/16/2023 at 8:08
--- NOTE | 2023-08-16 07:32 | DI.RAD.S_ITS ---
PROCEDURE: XR PELVIS 1-2V INDICATIONS: trauma TECHNIQUE: 1 view(s) of the pelvis acquired. COMPARISON: None. FINDINGS: Bones: No fractures or dislocations. No suspicious bony lesions. Soft tissues: Visualized bowel gas pattern is normal. No suspicious soft tissue calcifications. IMPRESSION: No gross acute pelvic fracture or dislocation. Dictated by: Adrian aJmes M.D. on 08/16/2023 at 8:08 Approved by: Adrian James M.D. on 08/16/2023 at 8:08
--- NOTE | 2023-08-16 07:33 | DI.CT.S_ITS ---
PROCEDURE: CT HEAD/BRAIN WO CON INDICATIONS: Trauma TECHNIQUE: Noncontrast 4.5 mm thick angled axial sections acquired from the foramen magnum to the vertex, with coronal and sagittal reformats. For radiation dose reduction, the following was used: automated exposure control, adjustment of mA and/or kV according to patient size. COMPARISON: None. FINDINGS: Image quality: Diagnostic. CSF spaces: Basal cisterns are patent. No extra-axial fluid collections. The ventricles are symmetric in size and shape. Brain: No intracranial bleeds or masses. There is cerebral volume loss for age, with resultant ventricular and sulcal prominence. There are periventricular and deep white matter chronic small vessel ischemic changes. There is intracranial internal carotid artery atherosclerosis. Skull and face: Calvarium and visualized facial bones appear intact, without suspicious lesions. Sinuses: Visualized sinuses and mastoids are clear. IMPRESSION: 1. No acute intracranial abnormalities. 2. Cerebral volume loss and chronic microvascular ischemic changes. Dictated by: Lizzy Serna M.D. on 08/16/2023 at 8:01 Approved by: Lizzy Serna M.D. on 08/16/2023 at 8:03
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
[2023-08-16 07:48] LABS: Add Manual Diff / Slide Review NO; Basophils Absolute Auto 0 /uL (0-100); Basophils Percent Auto 0.5 % (0-2); Eosinophils Absolute Auto 100 /uL (0-450); Eosinophils Percent Auto 2.2 % (2-4); Hematocrit 39.2 % (41-53); Hemoglobin 13.5 g/dL (13.5-17.5); Lymphocytes Absolute Auto 1800 /uL (1100-4500); Lymphocytes Percent Auto 34.3 % (25-40); Mean Corpuscular HGB Conc 34.5 % (30-36); Mean Corpuscular Hemoglobin 31.7 PG (26-34); Monocytes Absolute Auto 500 /uL (0-900); Monocytes Percent Auto 10.3 % (3-14); Neutrophils Absolute Auto 2800 /uL (1500-7000); Neutrophils Percent Auto 52.7 % (50-75); Platelet Count 285 X10^3/uL (150-400); Red Blood Cell Count 4.26 X10^6/uL (4.5-5.9); Red Cell Distribution Width 13.5 % (11.6-14.8); White Blood Cell Count 5.3 X10^3/uL (4.5-11.0)
[2023-08-16 07:54] LABS: INR 1.1 (0.9-1.3); Prothrombin Time 12.1 SECONDS (9.4-12.5)
[2023-08-16 07:57] LABS: PTT Partial Thromboplastin Tim 29 SECONDS (25.1-36.5)
[2023-08-16 07:58] LABS: Lactate (Lactic Acid) 1.3 mmol/L (0.7-2.1)
[2023-08-16 08:00] LABS: Alanine Aminotransferase 26 IU/L (<50); Albumin 4.2 g/dL (3.5-5.0); Albumin Globulin Ratio 1.2 (1.0-2.8); Alkaline Phosphatase 64 U/L (38-126); Aspartate Aminotransferase 31 IU/L (17-59); Bilirubin Total 0.9 mg/dL (0.2-1.3); Blood Urea Nitrogen 20 mg/dL (9-20); Calcium 9.2 mg/dL (8.4-10.2); Carbon Dioxide 28 mmol/L (22-32); Chloride 107 mmol/L (98-107); Estimated Glomerular Filt Rate > 60 mL/min (>60); Ethanol (ETOH) < 10 mg/dL; Globulin 3.5 g/dL (1.7-4.1); Glucose 104 mg/dL (80-110); HEMOLYSIS < 15 (0-50); Lipase 54 U/L (23-300); Potassium 3.4 mmol/L (3.4-5.1); Sodium 138 mmol/L (137-145); Total Protein 7.7 g/dL (6.3-8.2)
--- NOTE | 2023-08-16 08:37 | PC.NURSE ---
Provider removed inflated collar from patient neck at this time.
== END 2023-08-16 09:35 | disposition home or self-care (01) ==
PROVIDERS: Emergency Provider Emergency Medicine; PCP Student in an Organized Health Care Education/Training Program
DX: S06.9XAA Unspecified intracranial injury with loss of consciousness status unknown, initial encounter (principal); S70.01XA Contusion of right hip, initial encounter; V19.9XXA Pedal cyclist (driver) (passenger) injured in unspecified traffic accident, initial encounter
CPT/HCPCS: 36415; 70450; 71045; 72125; 72170; 80053; 80320; 81003; 83605; 83690; 85025; 85610; 85730; 86850; 86900; 86901; 93005; 99285

== ENCOUNTER → 2023-09-14 14:05 | Outpatient (CLI) | payer MEDICARE, SELFPAY ==
[2021-04-07 17:23] VITALS: BMI 31.1
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
== END ==
PROVIDERS: PCP Student in an Organized Health Care Education/Training Program; Referring Provider Nurse Practitioner Family; Visit Provider Nurse Practitioner Family
DX: S70.11XA Contusion of right thigh, initial encounter (principal); X58.XXXA Exposure to other specified factors, initial encounter
CPT/HCPCS: 76882

== ENCOUNTER → 2023-09-16 17:25 | Outpatient (CLI) | payer MEDICARE, SELFPAY ==
[2021-04-07 17:23] VITALS: BMI 31.1
[2023-09-16 17:44] LABS: Add Manual Diff / Slide Review NO; Basophils Absolute Auto 0 /uL (0-100); Basophils Percent Auto 0.5 % (0-2); Eosinophils Absolute Auto 100 /uL (0-450); Eosinophils Percent Auto 2.3 % (2-4); Hematocrit 38.5 % (41-53); Hemoglobin 13.1 g/dL (13.5-17.5); Lymphocytes Absolute Auto 1800 /uL (1100-4500); Lymphocytes Percent Auto 28.7 % (25-40); Mean Corpuscular Hemoglobin 31.9 PG (26-34); Mean Corpuscular Volume 93.8 fL (80-100); Monocytes Absolute Auto 700 /uL (0-900); Monocytes Percent Auto 10.5 % (3-14); Neutrophils Absolute Auto 3600 /uL (1500-7000); Platelet Count 290 X10^3/uL (150-400); Red Blood Cell Count 4.11 X10^6/uL (4.5-5.9); White Blood Cell Count 6.2 X10^3/uL (4.5-11.0)
[2023-09-16 17:52] LABS: BUN Creatinine Ratio 27.4 (6-22); Blood Urea Nitrogen 20 mg/dL (9-20); Calcium 9.1 mg/dL (8.4-10.2); Carbon Dioxide 28 mmol/L (22-32); Chloride 107 mmol/L (98-107); Estimated Glomerular Filt Rate > 60 mL/min (>60); Glucose 90 mg/dL (80-110); HEMOLYSIS < 15 (0-50); Potassium 3.6 mmol/L (3.4-5.1); Sodium 138 mmol/L (137-145)
== END ==
PROVIDERS: PCP Student in an Organized Health Care Education/Training Program; Referring Provider Student in an Organized Health Care Education/Training Program; Visit Provider Student in an Organized Health Care Education/Training Program
DX: M79.89 Other specified soft tissue disorders (principal)
CPT/HCPCS: 36415; 80048; 85025

== ENCOUNTER → 2023-09-17 12:03 | Outpatient (CLI) | payer MEDICARE, SELFPAY ==
[2021-04-07 17:23] VITALS: BMI 31.1
--- NOTE | 2023-09-17 12:04 | DI.CT.S_ITS ---
PROCEDURE: CT ANGIO PELVIS INDICATIONS: PELVIC MASS TECHNIQUE: After the administration of intravenous contrast, 2.5 mm sections acquired from the diaphragm to the iliac crests. 10 mm maximum intensity projection (MIP) coronal and sagittal reformats were then performed. For radiation dose reduction, the following was used: automated exposure control. COMPARISON: [facility], CT, CT ABDOMEN PELVIS W CON, 09/23/2018, 12:16. [facility], [place], [place] BONE SCAN WHOLE BODY, 05/08/2021, 14:18. FINDINGS: Image quality: Diagnostic. Bones: No displaced fracture. Moderate degenerative changes of the lumbar spine, hips and pubic symphysis. Stable 1.4 cm dense lesion in the right iliac wing (series 4, image 60) compared with 2019. Well corticated ossification along the posterior aspect of the right femur shaft, probably dystrophic calcification. Soft tissues: Fluid collection mostly within the superficial tissues overlying the right posterior and lateral lower extremity. This measures approximately 17.9 x 9.8 x 20.8 cm. No evidence of active extravasation . Prostate fiducial markers. Colonic diverticulosis without evidence of diverticulitis. IMPRESSION: Large right lower extremity hematoma, without evidence of extra extravasation. Findings discussed with Dr. Kang at time of dictation. Dictated by: Gonzalo Tavares M.D. on 09/17/2023 at 12:54 Approved by: Gonzalo Tavares M.D. on 09/17/2023 at 13:00
== END ==
PROVIDERS: PCP Student in an Organized Health Care Education/Training Program; Referring Provider Student in an Organized Health Care Education/Training Program; Visit Provider Student in an Organized Health Care Education/Training Program
DX: S80.11XA Contusion of right lower leg, initial encounter (principal); M79.89 Other specified soft tissue disorders; K57.90 Diverticulosis of intestine, part unspecified, without perforation or abscess without bleeding; M47.816 Spondylosis without myelopathy or radiculopathy, lumbar region; M89.9 Disorder of bone, unspecified
CPT/HCPCS: 72191; Q9967

== ENCOUNTER → 2024-01-26 13:41 | Outpatient (CLI) | payer MEDICARE, SELFPAY ==
[2021-04-07 17:23] VITALS: BMI 31.1
--- NOTE | 2024-01-26 | DI.ECHO.S_ITS ---
[place] [facility]+ [facility] : : [address] : : [place] : : [id number] : : Phone: [phone] Echocardiogram Report + + :Name: LAURO LOONEY Study Date: 01/26/2024 Height: 71 in : :[facility] ReadingLocation: Weight: 223 lb : : Gender: Male BSA: 2.2 m2 : :: 1940 Age: 83 yrs BP: 138/81 mmHg: :Reason For Study: SYNCOPE AND COLLAPSE : :Ordering Physician: DULCE JAMES Performed By: Alicia Bruno : :Referring: DULCE JAMES : + + Interpretation Summary 1. Left ventricular contractility is normal. Estimated ejection fraction is greater than 55% with no segmental wall motion abnormalities. No LVH. Normal diastolic function. 2. The right ventricular contractility is normal. 3. Mild left atrial enlargement. All other cardiac chambers are of normal size. 4. No significant valvular abnormalities. 5. No obvious intracardiac masses nor thrombi. 6. No obvious intracardiac shunts. 7. No hemodynamically significant pericardial effusion. 8. Low right-sided filling pressures. Conclusion: Normal biventricular function with no significant valvular nor structural abnormalities. Procedure: A two-dimensional transthoracic echocardiogram with color flow and Doppler was performed. The study quality was technically adequate. Comparison is made with the echocardiogram of 06/23/2018. The patient was in sinus bradycardia with heart rates between 50-55 bpm during the exam. Left Ventricle: The left ventricle is normal in size and wall thickness. The ejection fraction is estimated to be 55-60%. Right Ventricle: The right ventricle is normal in size and function. Atria: The left atrium is mildly dilated. Right atrial size is normal. There is no Doppler evidence for an interatrial shunt. Mitral Valve: The mitral valve is normal in structure and function. There is trace mitral regurgitation. Aortic Valve: The aortic valve is trileaflet. The aortic valve opens well. There is no aortic valve stenosis. No aortic regurgitation is present. Tricuspid Valve: The tricuspid valve is normal in structure and function. There is trace tricuspid regurgitation. The right ventricular systolic pressure is estimated to be at least 24 mmHg based on an estimated right atrial pressure of 3 mm Hg. Pulmonic Valve: The pulmonic valve leaflets are thin and pliable; valve motion is normal. There is trace pulmonic regurgitation. Great Vessels: The aortic root is normal size. The dimensions of the ascending aorta are normal. The IVC is of normal diameter and collapses greater than 50% with a sniff. This suggests a low right atrial pressure of 3 mm Hg. Pericardium/ Pleura There is no pericardial effusion. There is no pleural effusion. MMode/2D Measurements & Calculations LVIDd: 5.3 cm LVOT diam: 2.1 cm LVIDs: 3.8 cm Ao root diam: 3.1 cm FS: 28.5 % asc Aorta Diam: 3.6 cm IVSd: 0.84 cm Ao Arch Diam (Prox Trans): 2.1 cm LVPWd: 0.94 cm LV matos. diameter/BSA (cm/m^2): 2.4 LV sys. diameter/BSA (cm/m^2): 1.7 LA A2 area: 25.8 cm2 RA long axis: 5.8 cm LA A4 area: 25.1 cm2 RA area: 21.0 cm2 LA length (vol): 5.8 cm RA vol: 65.1 ml LA vol: 94.7 ml RA : 29.5 ml/m2 LA vol index: 42.9 ml/m2 IVC diam: 1.4 cm RVD1 (basal): 3.6 cm RVD2 (mid): 3.0 cm TAPSE: 2.3 cm Doppler Measurements & Calculations Ao V2 max: 174.0 cm/sec LVOT Max [place]: 109.9 cm/sec Ao V2 mean: 121.2 cm/sec LV V1 max P.8 mmHg Ao max P.1 mmHg LV V1 VTI: 26.4 cm Ao mean P.7 mmHg MEHDI(I,D): 2.3 cm2 Ao V2 VTI: 39.7 cm MEHDI(V,D): 2.1 cm2 sev ratio: 0.67 MEHDI indexed to BSA (cm^2/m^2): 1.0 MV E max [place]: 76.4 cm/sec TR max [place]: 243.3 cm/sec MV A max [place]: 50.9 cm/sec TR max P.7 mmHg MV E/A: 1.5 PA V2 max: 96.6 cm/sec Med Peak E' [place]: 7.8 cm/sec PA V2 mean: 74.9 cm/sec E/E' med: 9.8 PA mean P.4 mmHg Lat Peak E' [place]: 12.6 cm/sec PA pr(Accel): 13.9 mmHg E/E' lat: 6.1 E/e' average: 7.9 MV dec time: 0.31 sec SV(LVOT): 89.4 ml Reading Physician:
--- NOTE | 2024-01-26 | DI.NM.S_ITS ---
PROCEDURE: NM EXERCISE TREADMILL NON NUC COMPARISON: None. INDICATIONS: SYNCOPE AND COLLAPSE FINDINGS: patient exercised for 5 minutes and 11 seconds reaching 111% of maximum predicted heart rate. Appropriate BP response to exercise. No angina and no diagnostic ST changes during exercise or recovery. Frequent PACs during recovery. IMPRESSION: Low risk, normal treadmill ECG only stress test from inducible ischemia standpoint (KENISHA -5%). Frequent PACs during recovery. Dictated by: Scarlet Yin MD on 01/27/2024 at 12:28 Approved by: Scarlet Yin MD on 01/27/2024 at 12:30
== END ==
LOC: ECHO 13:42
PROVIDERS: PCP Student in an Organized Health Care Education/Training Program; Referring Provider Internal Medicine; Visit Provider Internal Medicine
DX: R55 Syncope and collapse (principal)
CPT/HCPCS: 93017; 93306

== ENCOUNTER → 2025-03-27 12:01 | Outpatient (CLI) | payer MEDICARE, SELFPAY ==
[2021-04-07 17:23] VITALS: BMI 31.1
--- NOTE | 2025-03-27 12:04 | DI.RAD.S_ITS ---
PROCEDURE: XR CHEST 2V INDICATIONS: F/U PNEUMONIA TECHNIQUE: 2 views of the chest were acquired. COMPARISON: [facility], [place], XR CHEST 1V, 08/16/2023, 7:46. FINDINGS: Surgical changes and devices: Loop recorder device projects over the left heart on frontal view Lungs and pleura: Lungs are clear. No pleural effusions or pneumothorax. Mediastinum: Mediastinal contours are normal. Heart size is normal. Bones and chest wall: No suspicious bony abnormalities. Soft tissues appear unremarkable. IMPRESSION: Lungs are clear Dictated by: Jesse Arthur M.D. on 03/27/2025 at 13:28 Approved by: Jesse Arthur M.D. on 03/27/2025 at 13:29
== END ==
PROVIDERS: PCP Family Medicine; Referring Provider Family Medicine; Visit Provider Family Medicine
DX: J18.9 Pneumonia, unspecified organism (principal)
CPT/HCPCS: 71046